=== PATIENT | female | born 1980 | race Native Hawaiian/Other Pacific Islander ===

== ENCOUNTER 2016-11-18 14:49 | Emergency (ER) | payer OTHER ==
[~2016-11-18] VITALS: Ht 162.6 cm; Wt 118.8 kg
[~2016-11-18 14:49] MED LIST: LEVO0.0218 PO; METF500T PO
[2016-11-18 14:55] VITALS: TEMP 98.1
[2016-11-18 15:33] LABS: PLATELET COUNT 270 K/uL (152-353)
[2016-11-18 15:41] LABS: POTASSIUM 3.4 mmol/L (3.6-5.2); SODIUM 138 mmol/L (136-145)
[2016-11-18 16:58] VITALS: BP 145/82
== END 2016-11-18 16:58 | disposition home or self-care (01) ==
LOC: ED 14:49
DX: R74.8 Abnormal levels of other serum enzymes (principal); K74.60 Unspecified cirrhosis of liver; E11.9 Type 2 diabetes mellitus without complications
CPT/HCPCS: 36415; 80053; 80307; 81000; 82150; 83036; 83690; 85027; 86318; 99283; G0479